=== PATIENT | male | born 1955 | race Caucasian/White ===

== ENCOUNTER 2021-03-01 18:01 | Emergency (ER) | payer BC, SELFPAY ==
[2021-03-01 18:20] VITALS: BP 182/67; PULSE 90; RESP 20; TEMP 36.7; O2SAT 97
--- NOTE | 2021-03-01 19:02 | ED.EAR ---
HPI - Ear Problem General Chief complaint: Ear Stated complaint: Blood coming out of his ear Time Seen by Provider: 03/01/21 18:30 Source: patient and RN notes reviewed Mode of arrival: ambulatory Limitations: no limitations History of Present Illness HPI Narrative: Patient presents today complaining of a 1 week history of bilateral bloody ear discharge and a 5-day history of bilateral ear pain, left greater than right. States the pain has improved over the past 3 days. He has not been trying any hgxt-mfj-murxzva treatment prior to arrival. He does wear bilateral hearing aids. Recently soaked in a whirlpool tub prior to onset of symptoms. 1 week ago he also had some post put in for some upcoming dental implants. States his hearing has decreased to almost nothing, especially in the left ear, even with his hearing aids. MD Complaint: ear pain, ear discharge and decreased hearing Related Data Home Medications Medication Instructions Recorded Confirmed gabapentin 600 mg PO DAILY 03/01/21 03/01/21 insulin aspart U-100 [Novolog DIRECTED 03/01/21 U-100 Insulin aspart] levothyroxine [Synthroid] 25 mcg PO DAILY 03/01/21 03/01/21 [id number] [Creon] 1 cap PO BID 03/01/21 03/01/21 metoprolol tartrate 25 mg PO DAILY 03/01/21 03/01/21 penicillin V potassium 500 mg PO QID 03/01/21 03/01/21 pravastatin 40 mg PO DAILY 03/01/21 03/01/21 Allergies Allergy/AdvReac Type Severity Reaction Status Date / Time Mfasoop-Eca-Rgo Reductase Allergy Mild Hives Verified 03/01/21 18:05 Inhibitor Review of Systems Review of Systems: Narrative: CONSTITUTIONAL: Denies body aches, fever, chills, or sweats. EYES: Denies visual changes, redness, or discharge. ENT: Denies rhinorrhea, congestion, sore throat. + Bilateral ear pain, decreased hearing, bloody discharge CARDIOVASCULAR: Denies chest pain, palpitations, or edema. RESPIRATORY: Denies cough or dyspnea. GASTROINTESTINAL: Denies abdominal pain, nausea, vomiting, or diarrhea. GENITOURINARY: Denies dysuria or hematuria. SKIN: Denies rash, itching, or wounds. MUSCULOSKELETAL: Denies back pain, joint pain, or myalgia. NEUROLOGIC: Denies headache, numbness, tingling, or weakness. PSYCH: Denies depression or anxiety. [facility] Past Medical History Medical History (Updated 03/01/21 @ 19:14 by Subha Pradhan, EP SPECIALIST, ) Anxiety COPD (chronic obstructive pulmonary disease) CVA (cerebral vascular accident) Diabetes Hard of hearing Hypercholesterolemia Hypothyroidism Comments At time of signature, I have reviewed and agree with nursing past medical, surgical, social and family history unless otherwise noted. Please see nursing chart for further information. There is no relevant family history pertinent to the presenting complaint Exam Narrative: Exam Narrative: GENERAL: Well-appearing, well-nourished, and in no acute distress. HEAD: Normocephalic, atraumatic. EYES: EOMI. No redness or drainage. Conjunctivae normal. ENT: Mucous membranes pink and moist. Nares clear. No rhinorrhea. Throat normal. Uvula midline. Hard of hearing. Bilateral ear canals are erythematous and severely edematous, left greater than right. The left ear canal is almost swollen completely shut. Both are tender to touch with otoscope probe. Moderate amount of purulent green discharge bilaterally. No blood noted. NECK: Normal AROM. CHEST: No respiratory distress. EXTREMITIES: Normal range of motion. No edema. SKIN: Warm, dry, no rash. Capillary refill normal. Normal skin turgor. NEURO: No focal deficits. Alert and oriented x3. Gait steady. PSYCH: Normal affect. No signs of depression or anxiety. Course Vital Signs Vital signs: Vital Signs Temperature 98.0 F 03/01/21 18:20 Pulse Rate 90 03/01/21 18:20 Respiratory Rate 20 03/01/21 18:20 Blood Pressure 182/67 H 03/01/21 18:20 Pulse Oximetry 97 03/01/21 18:20 Temperature 98.0 F 03/01/21 18:20 Pulse Rate 90 03/01
== END 2021-03-01 19:09 | disposition home or self-care (01) ==
PROVIDERS: Emergency Provider Nurse Practitioner
DX: H60.503 Unspecified acute noninfective otitis externa, bilateral (principal); J44.9 Chronic obstructive pulmonary disease, unspecified; E11.9 Type 2 diabetes mellitus without complications; E78.00 Pure hypercholesterolemia, unspecified; E03.9 Hypothyroidism, unspecified; Z86.73 Personal history of transient ischemic attack (TIA), and cerebral infarction without residual deficits; Z79.4 Long term (current) use of insulin
CPT/HCPCS: 99203; G0463

== ENCOUNTER 2022-09-15 10:46 | Emergency (ER) | payer BC, SELFPAY ==
[2022-09-15 10:55] VITALS: BP 180/73; PULSE 89; RESP 16; TEMP 36.6; O2SAT 100
--- NOTE | 2022-09-15 11:29 | ED.SKABFB ---
HPI - Skin/Abscess/Foreign Bdy General Chief complaint: Skin/Abscess/Foreign Body Stated complaint: Insect Bites to Skin Time Seen by Provider: 09/15/22 11:29 Source: patient, RN notes reviewed and old records reviewed Mode of arrival: ambulatory Limitations: no limitations History of Present Illness HPI narrative: 66-year-old male presents to the [facility] with complaints of insect bites all over his skin. Patient states I know I have scabies. Reports little red blisters on the back of his neck and on his back and chest at night. States the itching is worse at night. Has not taken anything for symptoms. Related Data Home Medications Medication Instructions Recorded Confirmed gabapentin 600 mg tablet 600 mg PO DAILY 03/01/21 09/15/22 insulin aspart U-100 100 unit/mL 1 unit subcut DIRECTED 03/01/21 09/15/22 subcutaneous solution (Novolog U-100 Insulin aspart) levothyroxine 25 mcg tablet 25 mcg PO DAILY 03/01/21 09/15/22 (Synthroid) fatnif-pjlzagxz-vllqonn 1 cap PO BID 03/01/21 09/15/22 24,000-76,000-120,000 unit capsule,delayed rel (Creon) metoprolol tartrate 25 mg tablet 25 mg PO DAILY 03/01/21 09/15/22 pravastatin 40 mg tablet 40 mg PO DAILY 03/01/21 09/15/22 losartan 50 mg tablet 50 mg PO DAILY 09/15/22 09/15/22 Allergies Allergy/AdvReac Type Severity Reaction Status Date / Time Jmfsftq-HZT-XdS Reductase Allergy Mild Hives Verified 09/15/22 11:00 Inhibitor [Xxhknec-Vsn-Wpd Reductase Inhibitor] Review of Systems Review of Systems: All systems reviewed & are unremarkable except as noted in HPI and below Constitutional: Constitutional: Reports no additional constitutional complaints, Denies chills and Denies fever(s) Eyes: Eyes: Reports no additional eye complaints ENT: Reports system reviewed and no additional complaints, except as documented Cardiovascular: Cardiovascular: Reports no additional cardiovascular complaints Respiratory: Respiratory: Reports no additional respiratory complaints Gastrointestinal: Gastrointestinal: Reports no additional gastrointestinal complaints Musculoskeletal: Musculoskeletal: Reports no additional musculoskeletal complaints Integumentary/Breasts: Skin/Breast: Reports as per HPI and Reports rash Neurologic: Reports system reviewed and no additional complaints, except as documented Psychiatric: Psychiatric: Reports no additional psychiatric complaints Allergic/Immunologic: Allergic/Immunologic: Reports no additional allergic/immunologic complaints PMFSH Past Medical History Medical History Anxiety COPD (chronic obstructive pulmonary disease) CVA (cerebral vascular accident) Diabetes Hard of hearing Hypercholesterolemia Hypothyroidism Comments At the time of my signature, I reviewed and agree with the nursing past medical, surgical, social, and family history. There is no relevant family history pertinent to the patient complaint. Exam Const: General: no acute distress, alert, ill appearing chronically; not acutely and well nourished Nutritional Appearance: well nourished Orientation/consciousness: patient oriented x3 Limitations: no limitations HENMT: Head: normal to inspection Ears: external ears normal Face/Nose/Sinus: Normal external nose present Face and sinus: normal facial exam and face symmetric Eyes: General: appearance normal, both eyes and all related structures Conjunctivae: conjunctivae normal Pupils: Equal, round and reactive pupils present Neck: Neck: normal visual inspection, no lymphadenopathy and no meningeal signs Chest: Chest palpation & inspection: normal inspection of the chest Resp: Effort & Inspection: normal respiratory effort and no use of accessory muscles Auscultation: clear to auscultation bilaterally, no crackles, no rales, no rhonchi and no wheezes Cardio: Rate: regular rate Rhythm: regular rhythm Skin: General skin exam: normal c
== END 2022-09-15 11:38 | disposition home or self-care (01) ==
PROVIDERS: Emergency Provider Nurse Practitioner
DX: R21 Rash and other nonspecific skin eruption (principal); J44.9 Chronic obstructive pulmonary disease, unspecified; E11.9 Type 2 diabetes mellitus without complications; Z79.4 Long term (current) use of insulin; E78.00 Pure hypercholesterolemia, unspecified; E03.9 Hypothyroidism, unspecified; Z86.73 Personal history of transient ischemic attack (TIA), and cerebral infarction without residual deficits
CPT/HCPCS: 99213; G0463